=== PATIENT | female | born 1990 | race Caucasian/White ===

== ENCOUNTER 2016-10-22 18:43 | Emergency (ER) | payer BC, MEDICAID ==
[~2016-10-22] VITALS: Ht 157.5 cm; Wt 65.8 kg
[~2016-10-22 18:43] MED LIST: CALC650T90 PO; FERR325E14 PO; PREN-385 PO
[2016-10-22 18:50] VITALS: BP 119/85
[2016-10-22] MEDS ORDERED: LIDOCAINE VISCOUS 2% 20 ML UDC PO ONE (20:00)
[2016-10-22] MEDS ORDERED: DICYCLOMINE HCL LIQUID 10 MG/5 ML UDC PO ONE (20:00)
[2016-10-22] MEDS ORDERED: ALUMINUM HYD/MAG/SIMETHICONE 30 ML UDC PO ONE (20:00)
[2016-10-22] MEDS ORDERED: KETOROLAC 60 MG/2 ML VIAL IM ONE (20:00)
[2016-10-22 20:29] VITALS: BP 110/81
== END 2016-10-22 20:35 | disposition home or self-care (01) ==
LOC: MED 18:43
DX: K29.70 Gastritis, unspecified, without bleeding (principal); R03.0 Elevated blood-pressure reading, without diagnosis of hypertension
CPT/HCPCS: 71010; 93005; 96372; 99284; J1885; Q0092

== ENCOUNTER 2017-03-16 10:21 | Emergency (ER) | payer BC ==
[~2017-03-16] VITALS: Ht 157.5 cm; Wt 69.2 kg
[2017-03-16 10:23] VITALS: BP 126/70
--- NOTE | 2017-03-16 10:28 | NUR ---
Patient ambulated to bed 12 at this time.
--- NOTE | 2017-03-16 10:33 | NUR ---
DR SANCHEZ AT BEDSIDE.
--- NOTE | 2017-03-16 10:35 | NUR ---
PATIENT PRESENTS TO ED WITH C/O LOWER BACK PAIN AND VAGINAL BLEEDING X TODAY;DENIES DYSURIA;CHANGED ONLY 1 [facility] [place]/ TODAY;PT STATED SHE HAD MISSED HER MENSES X 2 MONTHS;HCG IS NEGATIVE;DENIES DIZZINESS; SKIN IS PINK/WARM/DRY; AAOX4 WITH EVEN AND STEADY GAIT; LUNGS CLEAR BL; HR EVEN AND REGULAR; PT DENIES ANY FEVER, CP, SOB, OR COUGH AT THIS TIME; PATIENT STATES PAIN OF 7/10 AT THIS TIME; PATIENT POSITIONED FOR COMFORT; HOB ELEVATED; BEDRAILS UP X2; BED DOWN. ER MD MADE AWARE OF PT STATUS.
[2017-03-16] MEDS ORDERED: KETOROLAC 60 MG/2 ML VIAL IM ONE (10:40)
[2017-03-16 10:58] VITALS: BP 116/65
== END 2017-03-16 10:58 | disposition home or self-care (01) ==
LOC: MED 10:21
DX: N94.6 Dysmenorrhea, unspecified (principal)
CPT/HCPCS: 96372; 99283; J1885

== ENCOUNTER 2020-11-11 17:18 | Emergency (ER) | payer SELFPAY ==
[~2020-11-11] VITALS: Ht 157.5 cm; Wt 52.6 kg
[2020-11-11 17:24] VITALS: BP 124/70
--- NOTE | 2020-11-11 17:28 | NUR ---
PT AMBULATED TO BED 1 WITH STEADY GAIT
--- NOTE | 2020-11-11 17:50 | NUR ---
30 y/o F BIB self from home with c/c toe pain. Patient A&Ox4, ambulatory, reports L 1st digit toe pain s/p pedicure 2 weeks ago. Patient states 8/10, throbbing/constant, non-radiating pain. Patient reports increasing pain to left 1st digit for past 4 days. Swelling noted; no drainage, bleeding. +CMS +ROM. Patient states Tylenol 500mg prior to arrival with minor relief. Worsens with pressure. Denies fever, chills, headache, dizziness, numbness/tingling to extremities/left foot. VSS. Bed locked in lowest position, side rails x 1, call light in reach. PMH/Sx/Meds: Denies NKA
--- NOTE | 2020-11-11 17:55 | NUR ---
Urine sample provided at bedside.
--- NOTE | 2020-11-11 18:33 | NUR ---
Dr. Galelgos is evaluating patient at bedside.
[2020-11-11] MEDS ORDERED: CEPH500C16 PO (18:48)
[2020-11-11] MEDS ORDERED: IBUP-2213 PO (18:48)
[2020-11-11 18:54] VITALS: BP 124/70
--- NOTE | 2020-11-11 18:54 | NUR ---
Patient discharged with v/s stable. Written and verbal after care instructions given and explained. Patient alert, oriented and verbalized understanding of instructions. Ambulatory with steady gait. All questions addressed prior to discharge. ID band removed. Patient advised to follow up with PMD. Rx of Ibuprofen, Cephalexin given. Patient educated on indication of medication including possible reaction and side effects. Opportunity to ask questions provided and answered.
== END 2020-11-11 18:54 | disposition home or self-care (01) ==
LOC: MED 17:18
DX: L03.032 Cellulitis of left toe (principal)
CPT/HCPCS: 99283